=== PATIENT | female | born 1990 | race Caucasian/White ===

== ENCOUNTER 2016-12-08 14:16 | Emergency (ER) | payer BC ==
[2016-12-08 14:31] VITALS: BP 127/59
--- NOTE | 2016-12-08 15:59 | UC ---
Throat Pain/Nasal Calvin HPI - HPI Summary HPI Summary: 1) Mild ST starting about a week ago, much worse yesterday, some PND. Denies fever, cough, or trouble breathing. 2) painful spot on L flank area starting yesterday with redness around it. - History of Current Complaint Chief Complaint: UCGeneralIllness Stated Complaint: SORE THROAT, SKIN "BUMP" Time Seen by Provider: 12/08/16 15:39 Hx Obtained From: Patient Hx Last Menstrual Period: 11/24/16 ?: No Onset/Duration: Gradual Onset, Lasting Days Severity: Mild Cough: None Associated Signs & Symptoms: Positive: Rash - Allergies/Home Medications Allergies/Adverse Reactions: Allergies Allergy/AdvReac Type Severity Reaction Status Date / Time Acetaminophen [From Percocet] Allergy See Comment Verified 01/22/16 15:07 Oxycodone [From Percocet] Allergy See Comment Verified 01/22/16 15:07 Latex AdvReac Mild Rash And Verified 01/22/16 15:07 Itching percocet Allergy Intermediate See Comment Uncoded 01/22/16 15:07 PMH/Surg Hx/FS Hx/Imm Hx Previously Healthy: Yes - Surgical History Surgical History: Yes Surgery Procedure, Year, and Place: ovarian cyst 09/2013 - Family History Known Family History: Positive: Cardiac Disease - Social History Occupation: Employed Full-time - [employer] Lives: With Family Alcohol Use: None Substance Use Type: None Smoking Status (MU): Former Smoker Have You Smoked in the Last Year: No - Immunization History Most Recent Tetanus Shot: unknown Review of Systems Constitutional: Negative Skin: Rash - L hip Eyes: Negative ENT: Sore Throat Respiratory: Negative Cardiovascular: Negative Gastrointestinal: Negative Genitourinary: Negative Motor: Negative Neurovascular: Negative Musculoskeletal: Negative Neurological: Negative Psychological: Negative All Other Systems Reviewed And Are Negative: Yes Physical Exam Triage Information Reviewed: Yes Appearance: No Pain Distress, Obese Vital Signs: Initial Vital Signs Temp 98 F 12/08/16 14:28 Pulse 85 12/08/16 14:28 Resp 16 12/08/16 14:28 BP 127/59 12/08/16 14:28 Pulse Ox 99 12/08/16 14:28 Vital Signs Reviewed: Yes Eye Exam: Normal, Other - PERRL Eyes: Positive: Conjunctiva Clear ENT: Positive: Hearing grossly normal, Pharynx normal, TMs normal, Other: - fluid behind L ear drum. Negative: Tonsillar swelling, Tonsillar exudate Dental Exam: Normal Neck exam: Normal Neck: Positive: Supple, Nontender, No Lymphadenopathy Respiratory Exam: Normal Respiratory: Positive: Chest non-tender, Lungs clear, Normal breath sounds, No respiratory distress, No accessory muscle use Cardiovascular Exam: Normal Cardiovascular: Positive: RRR, No Murmur Musculoskeletal Exam: Normal Neurological Exam: Normal Neurological: Positive: Alert Psychological Exam: Normal Skin Exam: Other - 6cm x 3.5cm erythema on L flank with scab in the center, no abscess or drainage Throat Pain/Nasal Course/Dx - Differential Dx/Diagnosis Provider Diagnoses: allergic rhinitis. cellulitis. strep throat. elevated blood pressure due to pain Discharge - Discharge Plan Condition: Stable Disposition: HOME Prescriptions: Cephalexin CAP* [Keflex 500 CAP*] 500 mg PO TID #30 cap Cetirizine* [ZyrTEC 10 MG TAB*] 10 mg PO DAILY #30 tab Patient Education Materials: Allergic Rhinitis (ED), Cellulitis (ED), Strep Throat (ED) Forms: *Work Release Additional Instructions: Rapid strep positive.
== END 2016-12-08 16:19 | disposition home or self-care (01) ==
LOC: UCEAST 14:16
DX: J30.9 Allergic rhinitis, unspecified (principal); J02.0 Streptococcal pharyngitis; L03.116 Cellulitis of left lower limb; R03.0 Elevated blood-pressure reading, without diagnosis of hypertension; E66.9 Obesity, unspecified; Z88.5 Allergy status to narcotic agent; Z88.6 Allergy status to analgesic agent; Z91.040 Latex allergy status; Z87.891 Personal history of nicotine dependence
CPT/HCPCS: 87651; 99212; G0463

== ENCOUNTER 2019-02-21 20:52 | Emergency (ER) | payer BC ==
[2019-02-21 22:24] LABS: ABS Basophils 0.2 10^3/ul (0-0.2); ABS Eosinophils 0.1 10^3/ul (0-0.6); ABS Lymphocytes 2.3 10^3/ul (1.0-4.8); ABS Monocytes 0.5 10^3/ul (0-0.8); ABS Neutrophils 10.9 10^3/ul (1.5-7.7); Eosinophil % 0.7 %; Hematocrit 41 % (35-47); Lymphocyte % 16.7 %; Mean Corpuscular HGB Conc 32 g/dL (31-36); Mean Corpuscular Hemoglobin 27 pg (27-31); Mean Corpuscular Volume 85 fL (80-97); Platelet Count 305 10^3/uL (150-450); Red Blood Count 4.78 10^6 /uL (3.70-4.87); Red Cell Distribution Width 16 % (10-15); White Blood Count 13.9 10^3/uL (3.5-10.8)
[2019-02-21 22:42] LABS: Albumin 4.5 g/dL (3.2-5.2); Albumin/Globulin Ratio 1.3 (1-3); BUN/Creatinine Ratio 18.2 (8-20); Calcium 9.9 mg/dL (8.6-10.3); EGFR African American 109.6 (>60); EGFR Non-African American 90.6 (>60); Globulin 3.5 g/dL (2-4); Potassium 4.4 mmol/L (3.5-5.0); Total Bilirubin 0.3 mg/dL (0.2-1.0)
[2019-02-21 23:09] LABS: TSH (Thyroid Stimulating Horm) 1.38 mcIU/mL (0.34-5.60)
--- NOTE | 2019-02-22 00:27 | ED ---
Syncope/Near Syncope - HPI Summary HPI Summary: This pt is a 28 Y/O F presenting to [facility] for a CC of a syncopal episode that occurred 6 hours ago at 1830. She states that she felt nauseas while talking to them and fell backwards onto the floor shaking. Before she passed out she states that her vision disappeared and the world went black. She states that she was unconscious during the episode which lasted around 3 and a half minutes. She denies any sickness prior to the episode and stated that she was eating normally. She states that she did not drink as much as she usually does. She denies any fevers, CP, SOB, headaches, and vomiting. She states that after she woke up she felt fine. She states no aggravating factors and states that she was aroused by her friend. Her last period was 2 weeks ago. She has a FHx of HTN. - History Of Current Complaint Chief Complaint: EDSyncope Time Seen by Provider: 02/22/19 00:17 Hx Obtained From: Patient Onset/Duration: Sudden Onset, Resolved Timing: Intermittent Episode Lasting - 3 minutes 30 seconds Context: Witnessed Activity At Onset: At Rest Associated Head Trauma: No Aggravating Factor(s): Nothing Alleviating Factor(s): Other - friend woke her up Associated Signs And Symptoms: Negative - fevers, CP, SOB, headaches, and vomiting - Allergies/Home Medications Allergies/Adverse Reactions: Allergies Allergy/AdvReac Type Severity Reaction Status Date / Time MS Acetaminophen Allergy See Comment Verified 02/22/19 00:15 [From Percocet] MS Oxycodone [From Percocet] Allergy See Comment Verified 02/22/19 00:15 MS Latex AdvReac Mild Rash And Verified 02/22/19 00:15 Itching percocet Allergy Intermediate See Comment Uncoded 01/22/16 15:07 Home Medications: Home Medications Guanfacine HCl [Guanfacine HCl ER] 1 mg PO DAILY 02/22/19 [History Confirmed ] PMH/Surg Hx/FS Hx/Imm Hx Previously Healthy: Yes Endocrine/Hematology History: Denies: Hx Diabetes Cardiovascular History: Reports: Other Cardiovascular Problems/Disorders - ENLARGED HEART, HEART MURMUR Denies: Hx Hypertension - Surgical History Surgical History: Yes Surgery Procedure, Year, and Place: ovarian cyst 09/2013 - Immunization History Immunizations Up to Date: Yes Infectious Disease History: No Infectious Disease History: Denies: Hx Clostridium Difficile, Hx Hepatitis, Hx Human Immunodeficiency Virus (HIV), Hx of Known/Suspected MRSA, Hx Shingles, Hx Tuberculosis, Hx Known/ Suspected VRE, Hx Known/Suspected VRSA, History Other Infectious Disease, Traveled Outside the [place] in Last 30 Days - Family History Known Family History: Positive: Cardiac Disease - Social History Occupation: Employed Full-time Lives: With Family Alcohol Use: Rare Hx Substance Use: Yes Substance Use Type: Reports: Marijuana Substance Use Comment - Amount & Last Used: couple times a week Hx Tobacco Use: Yes Smoking Status (MU): Light Every Day Tobacco Smoker Amount Used/How Often: 1 or 2 black and milds a day Have You Smoked in the Last Year: Yes Household Exposure: No Review of Systems Negative: Fever Negative: Chest Pain Negative: Shortness Of Breath Positive: Nausea. Negative: Vomiting Positive: Syncope All Other Systems Reviewed And Are Negative: Yes Physical Exam - Summary Physical Exam Summary: Appearance: Well-appearing, Well-nourished, lying in bed comfortably Skin: Warm, dry, no obvious rash Eyes: sclera anicteric, no conjunctival pallor ENT: mucous membranes moist, pharynx appears normal Neck: Supple, nontender Respiratory: Clear to auscultation, no signs of respiratory distress Cardiovascular: Normal S1, S2. No murmurs. Normal distal pulses in tibial and radial bilaterally. Abdomen: Soft, nontender, normal active bowel sounds present Musculoskeletal: Normal, Strength/ROM Intact Neurological: A&Ox3, awake and alert, mentation is normal, speech is fluent and appropriate Psychiatric: affect is normal, does not appear anxious or depressed Triage Information Reviewed: Yes Vital Signs On Initial Exam: Initial Vitals Temp Pulse Resp BP Pulse Ox 97.8 F 86 16 134/71 100 02/21/19 20:54 02/21/19 20:54 02/21/19 20:54 02/21/19 20:54 02/21/19 20:54 Vital Signs Reviewed: Yes Procedures - Sedation Patient Received Moderate/Deep Sedation with Procedure: No Diagnostics - Vital Signs Vital Signs Temp Pulse Resp BP Pulse Ox 02/22/19 00:02 98 F 80 20 147/78 98 02/21/19 22:54 99.6 F 79 20 145/64 98 02/21/19 20:54 97.8 F 86 16 134/71 100 - Laboratory Lab Results: Lab Results 02/21/19 02/21/19 02/21/19 Range/Units 22:01 22:01 22:01 WBC 13.9 H (3.5-10.8) 10^3/uL RBC 4.78 (3.70-4.87) 10^6 /uL Hgb 13.0 (12.0-16.0) g/dL Hct 41 (35-47) % MCV 85 (80-97) fL MCH 27 (27-31) pg MCHC 32 (31-36) g/dL RDW 16 H (10-15) % Plt Count 305 (150-450) 10^3/uL MPV 8.0 (7.4-10.4) fL Neut % (Auto) 77.9 % Lymph % (Auto) 16.7 % Braxton % (Auto) 3.5 % Eos % (Auto) 0.7 % Baso % (Auto) 1.2 % Absolute Neuts (auto) 10.9 H (1.5-7.7) 10^3/ul Absolute Lymphs (auto) 2.3 (1.0-4.8) 10^3/ul Absolute Monos (auto) 0.5 (0-0.8) 10^3/ul Absolute Eos (auto) 0.1 (0-0.6) 10^3/ul Absolute Basos (auto) 0.2 (0-0.2) 10^3/ul Absolute Nucleated RBC 0.0 10^3/ul Nucleated RBC % 0.0 Sodium 138 (135-145) mmol/L Potassium 4.4 (3.5-5.0) mmol/L Chloride 106 (101-111) mmol/L Carbon Dioxide 24 (22-32) mmol/L Anion Gap 8 (2-11) mmol/L BUN 14 (6-24) mg/dL Creatinine 0.77 (0.51-0.95) mg/dL Est GFR ( Amer) 109.6 (>60) Est GFR (Non-Af Amer) 90.6 (>60) BUN/Creatinine Ratio 18.2 (8-20) Glucose 92 (70-100) mg/dL Lactic Acid 0.5 (0.5-2.0) mmol/L Calcium 9.9 (8.6-10.3) mg/dL Magnesium 2.0 (1.9-2.7) mg/dL Total Bilirubin 0.30 (0.2-1.0) mg/dL AST 12 L (13-39) U/L ALT 16 (7-52) U/L Alkaline Phosphatase 66 (34-104) U/L Troponin I 0.00 (<0.04) ng/mL Total Protein 8.0 (6.4-8.9) g/dL Albumin 4.5 (3.2-5.2) g/dL Globulin 3.5 (2-4) g/dL Albumin/Globulin Ratio 1.3 (1-3) TSH 1.38 (0.34-5.60) mcIU/mL Result Diagrams: 02/21/19 22:01 02/21/19 22:01 Lab Statement: Any lab studies that have been ordered have been reviewed, and results considered in the medical decision making process. - EKG 2138 Cardiac Rate: NL - 77 BPM EKG Rhythm: Sinus Rhythm ST Segment: Normal Ectopy: None Summary of EKG Findings: NSR at 77 BPM, P waves, QRS complex, and T waves are within normal limits, T waves and intervals are normal, no ischemic changes. This is a normal EKG. Interpreted by Dr. Reyna at 214902/21/19. Course/Dx Course Of Treatment: This pt is a 28 Y/O F presenting to [facility] for a CC of a syncopal episode that occurred 6 hours ago at 1830. She states that she felt nauseas while talking to them and fell backwards onto the floor shaking. Before she passed out she states that her vision disappeared and the world went black. She states that she was unconscious during the episode which lasted around 3 and a half minutes. Her PE found no acute abnormalities. She has no abnormalities in her labratory results. Her EKG at 2138 shows a NSR at 77 BPM, P waves, QRS complex, and T waves are within normal limits, T waves and intervals are normal, no ischemic changes. This is a normal EKG. She will be discharged home with a Dx of a syncopal episode. - Diagnoses Provider Diagnoses: Syncopal episodes Discharge ED - Sign-Out/Discharge Documenting (check all that apply): Patient Departure - discharge - Discharge Plan Condition: Stable Disposition: HOME Patient Education Materials: Syncope (ED) Referrals: Gaby Wayne MD [Primary Care Provider] - 3 Days - Billing Disposition and Condition Condition: STABLE Disposition: Home - Attestation Statements Document Initiated by Nickolas: Yes Documenting Scribe: Alan Welsh Provider For Whom Nickolas is Documenting (Include Credential): Rainer Oneal MD Scribe Attestation: Alan Reyes, scribed for Rainer Oneal MD on 02/22/19 at 2115. Scribe Documentation Reviewed: Yes Provider Attestation: The documentation as recorded by the Alan blue accurately reflects the service I personally performed and the decisions made by , Rainer Oneal MD Status of Scribe Document: Viewed
[2019-02-22 00:46] VITALS: BP 94/71
== END 2019-02-22 00:46 | disposition home or self-care (01) ==
LOC: ED 20:52
DX: R55 Syncope and collapse (principal); R11.0 Nausea; Z88.5 Allergy status to narcotic agent; Z88.6 Allergy status to analgesic agent; Z91.040 Latex allergy status; F17.200 Nicotine dependence, unspecified, uncomplicated
CPT/HCPCS: 36415; 80053; 83605; 83735; 84443; 84484; 85025; 93005; 99283

== ENCOUNTER 2019-07-13 10:04 | Emergency (ER) | payer BC ==
[2019-07-13 10:20] VITALS: BP 132/59
--- NOTE | 2019-07-13 10:37 | UC ---
Respiratory Complaint HPI - HPI Summary HPI Summary: 29 year old female with PMH negative presents with c/o cough since Sunday. + sinus pressure, pain, + neck pain, + cough, sometimes productive. + SOB with coughing, none at rest. - History of Current Complaint Chief Complaint: UCGeneralIllness Stated Complaint: COUGH Time Seen by Provider: 07/13/19 10:30 Hx Obtained From: Patient Hx Last Menstrual Period: first week of Jun ?: No Onset/Duration: Sudden Onset Timing: Constant Severity Currently: None Pain Intensity: 0 Pain Scale Used: 0-10 Numeric Character: Cough: Productive - at times, usually non-productive Aggravating Factors: Deep Breaths Alleviating Factors: Nothing Associated Signs And Symptoms: Positive: Dyspnea, URI, Nasal Congestion - Allergies/Home Medications Allergies/Adverse Reactions: Allergies Allergy/AdvReac Type Severity Reaction Status Date / Time latex Allergy Mild Rash Verified 07/13/19 10:21 oxycodone Allergy Agitation Uncoded 07/13/19 10:21 Home Medications: Home Medications Albuterol HFA INHALER* [Ventolin HFA Inhaler*] 1 - 2 puff INH Q4H PRN #1 mdi 12/24 [Rx] Amoxicillin/Clavulanate TAB* [Augmentin TAB 875*] 875 mg PO BID #14 tab [Rx] Levonorgestrel (Iud) [Liletta IUD] 18.6 mcg IU 07/13/19 [History] PMH/Surg Hx/FS Hx/Imm Hx Previously Healthy: Yes - Surgical History Surgical History: Yes Surgery Procedure, Year, and Place: ovarian cyst 09/2013 - Family History Known Family History: Positive: Cardiac Disease - Social History Alcohol Use: Rare Substance Use Type: Marijuana Substance Use Comment - Amount & Last Used: couple times a week Smoking Status (MU): Light Every Day Tobacco Smoker Amount Used/How Often: 5-6 cig per day Have You Smoked in the Last Year: Yes - Immunization History Most Recent Tetanus Shot: unknown Review of Systems All Other Systems Reviewed And Are Negative: Yes Constitutional: Positive: Fever - possible tactile, Chills, Fatigue Eyes: Positive: Negative ENT: Positive: Sore Throat, Ear Ache, Sinus Congestion, Sinus Pain/Tenderness Respiratory: Positive: Shortness Of Breath, Cough Cardiovascular: Positive: Negative Genitourinary: Positive: Negative Motor: Positive: Negative Neurovascular: Positive: Negative Musculoskeletal: Positive: Negative Neurological/Mental Status: Positive: Headache Is Patient Immunocompromised?: No Physical Exam Triage Information Reviewed: Yes Appearance: Well-Appearing, No Pain Distress, Well-Nourished Vital Signs: Initial Vital Signs Temp 97.4 F 07/13/19 10:17 Pulse 90 07/13/19 10:17 Resp 16 07/13/19 10:17 BP 132/59 07/13/19 10:17 Pulse Ox 97 07/13/19 10:17 Vital Signs Reviewed: Yes Eyes: Positive: Conjunctiva Clear ENT: Positive: Pharynx normal, TMs normal, Sinus tenderness - b/l submax, Uvula midline. Negative: Pharyngeal erythema, TM bulging, TM dull, TM red, Tonsillar swelling, Tonsillar exudate Neck: Positive: Supple, Nontender, No Lymphadenopathy Respiratory: Positive: Chest non-tender, Normal breath sounds, No respiratory distress, No accessory muscle use, Rhonchi - RLL, faint. Negative: Respiratory distress, Decreased breath sounds Cardiovascular: Positive: RRR, No Murmur Neurological: Positive: Alert Psychological Exam: Normal Skin Exam: Normal Respiratory Course/Dx - Course Course Of Treatment: SInusitis in patient with h/o smoking - Increase fluid intake - Humidifier at night to help with coughing - Good Hygiene, hand washing to prevent spread - Over the counter medications for symptoms - Motrin/ Tylenol as needed for pain, fever - Antibiotics as directed - Work note given - Discussed stopping smoking - Differential Dx/Diagnosis Provider Diagnosis: Sinusitis Discharge ED - Sign-Out/Discharge Documenting (check all that apply): Patient Departure All imaging exams completed and their final reports reviewed: Yes - Discharge Plan Condition: Good Disposition: HOME Prescriptions: Albuterol HFA INHALER* [Ventolin HFA Inhaler*] 1 - 2 puff INH Q4H PRN #1 mdi PRN Reason: cough, shortness of breath Amoxicillin/Clavulanate TAB* [Augmentin TAB 875*] 875 mg PO BID #14 tab Patient Education Materials: Sinusitis (ED) Forms: *Work Release Referrals: Gaby Wayne MD [Primary Care Provider] - Additional Instructions: - Increase fluid intake - Humidifier at night to help with coughing - Good Hygiene, hand washing to prevent spread - Over the counter medications for symptoms - Motrin/ Tylenol as needed for pain, fever - Antibiotics as directed - Work note given - Billing Disposition and Condition Condition: GOOD Disposition: Home - Attestation Statements Provider Attestation: I was available for consult. This patient was seen by the JOSIAH. The patient was not presented to , seen by or examined by wa -Arik Timmons MD
== END 2019-07-13 11:44 | disposition home or self-care (01) ==
LOC: UCEAST 10:04
DX: J32.9 Chronic sinusitis, unspecified (principal); J02.9 Acute pharyngitis, unspecified; H92.09 Otalgia, unspecified ear; F17.210 Nicotine dependence, cigarettes, uncomplicated; R05 Cough; R06.02 Shortness of breath; Z91.040 Latex allergy status; Z88.5 Allergy status to narcotic agent
CPT/HCPCS: 71046; 99212; G0463